=== PATIENT | female | born 1985 ===

== ENCOUNTER 2019-11-25 11:08 | Emergency (ER) | payer OTHER ==
[~2019-11-25] VITALS: Ht 157.5 cm; Wt 52.2 kg
[~2019-11-25 11:08] MED LIST: FIORICET 50-301 EACH PO
[2019-11-25] MEDS ORDERED: PRENATAL 19 TA1 EACH (11:21)
== END 2019-11-25 13:56 | disposition home or self-care (01) ==
LOC: ER 11:08
DX: N93.8 Other specified abnormal uterine and vaginal bleeding (principal)